=== PATIENT | male | born 1975 | race Caucasian/White ===

== ENCOUNTER → 2019-06-28 | Outpatient (CLI) | payer MEDICAID ==
[2019-06-28 11:38] LABS: HCT 44.8 % (39.0-53.0); HGB 15.6 gm/dL (13.0-17.5); MCH 31.1 pg (25.0-35.0); MCHC 34.8 g/dL (31.0-37.0); MCV 89.4 fL (80.0-100.0); Mean Platelet Volume 6.2; Platelet Count 229 k/uL (150-450); RBC 5.02 m/uL (4.30-5.90); RDW 12.2 % (11.5-15.5); WBC 12.9 k/uL (3.8-10.6)
[2019-06-28 12:09] LABS: Appearance,Urine Clear (Clear); Bilirubin,Urine Negative (Negative); Blood,Urine Negative (Negative); Color,Urine Yellow; Glucose,Urine (UA) Negative (Negative); Ketones,Urine Negative (Negative); Leukocyte Esterase,Urine Negative (Negative); Nitrite,Urine Negative (Negative); PH, Urine 5.5 (5.0-8.0); Protein,Urine Negative (Negative); Specific Gravity,Urine 1.023 (1.001-1.035); Urobilinogen,Urine <2.0 mg/dL (<2.0)
[2019-06-28 16:00] LABS: African American GFR (CKD) 120.8 (60.0-200.0); Albumin/Globulin Ratio 2.78 (1.60-3.17); Anion Gap 8.6 mmol/L (4.00-12.00); BUN/Creat Ratio 14.44 Ratio (12.00-20.00); Calcium 9.7 mg/dL (8.7-10.3); Carbon Dioxide 24.4 mmol/L (21.6-31.8); Chol/HDL Ratio 4.08; Globulin 1.8 g/dL (1.6-3.3); LDL Cholesterol,Calculated 95.8 mg/dL (0.0-131.0); Potassium 4.3 mmol/L (3.5-5.5); Total Bilirubin 0.7 mg/dL (0.3-1.2); Total Protein 6.8 g/dL (6.2-8.2); VLDL Calculation 15.2 mg/dL (5.00-40.00)
== END | disposition home or self-care (01) ==
LOC: LABWHC1 11:07
PROVIDERS: ATTEND Family Medicine
DX: Z00.01 Encounter for general adult medical examination with abnormal findings (principal)
CPT/HCPCS: 36415; 80053; 80061; 81003; 85027

== ENCOUNTER → 2019-10-04 | Outpatient (CLI) | payer MEDICAID ==
[2019-10-04 18:59] LABS: ALT 26 U/L (10-49); AST 22 U/L (14-35)
== END ==
LOC: LABWHC1 10:30
PROVIDERS: ATTEND Podiatrist Foot & Ankle Surgery
DX: K74.60 Unspecified cirrhosis of liver (principal)
CPT/HCPCS: 36415; 84450; 84460

== ENCOUNTER 2021-05-16 07:52 | Day surgery (SDC) | payer MEDICAID ==
[2021-05-14 13:02] VITALS: BMI 31.0
[~2021-05-16 07:52] MED LIST: LACTATED RINGERS 1,000 ML IV SCH
[2021-05-16 08:41] VITALS: RESP 16; TEMP 98
[2021-05-16] MEDS ORDERED: PROPOFOL 10 MG/ML 20 ML VIAL IV ONE (09:48)
[2021-05-16] MEDS ORDERED: GLYCOPYRROLATE 0.2 MG/ML 2 ML VIAL ONE (09:48)
--- NOTE | 2021-05-16 10:15 | P.HPIHPCON ---
History of Present Illness H&P Date: 05/16/21 46-year-old male presents for skin colonoscopy. He states his last colonoscopy was 20 years ago. He did have polyps at that time. Denies any blood in his stool. States he has a known: With a history of colon cancer. Consent for Procedure: I have explained the operation/procedure to the patient, including the risks, benefits, side effects, alternative therapies (including not receiving the proposed treatment or service), the likelihood of the patient achieving his/her goals, and potential recuperation problems for the procedure/sedation/analgesia, as well as any blood products, if indicated. I also explained to the patient the risks, benefits and side effects of the alternatives, as well as the risks related to not receiving the proposed procedure, care, treatment, or services. - Review of Systems All systems: negative Past Medical History Past Medical History: No Reported History History of Any Multi-Drug Resistant Organisms: None Reported Additional Past Surgical History / Comment(s): COLONOSCOPY. CYST REMOVED BY [facility] Past Anesthesia/Blood Transfusion Reactions: No Reported Reaction Smoking Status: Current every day smoker - Past Family History Mother Family Medical History: Pulmonary Embolus Additional Family Medical History / Comment(s): UNCLE ALSO HAD COLON CANCER Medications and Allergies Home Medications Medication Instructions Recorded Confirmed Type Citalopram Hydrobromide [CeleXA] 20 mg PO DAILY 05/14/21 05/14/21 History buPROPion SR [Wellbutrin SR] 150 mg PO DAILY 05/14/21 05/14/21 History Allergies Allergy/AdvReac Type Severity Reaction Status Date / Time No Known Allergies Allergy Verified 05/14/21 12:57 Surgical - Exam Osteopathic Statement: *. No significant issues noted on an osteopathic structural exam other than those noted in the History and Physical/Consult. Vital Signs Temp Pulse Resp BP Pulse Ox 98.0 F 83 16 120/72 99 05/16/21 08:40 05/16/21 08:40 05/16/21 08:40 05/16/21 08:40 05/16/21 08:40 - General well nourished, no distress - Eyes normal ocular movement - Neck trachea midline - Respiratory normal respiratory effort - Abdomen Abdomen: soft, non tender Assessment and Plan Plan: 46-year-old female presents for screening colonoscopy. Risks, benefits and alternatives were explained to the patient. He has opted for endoscopy. Consent was provided. Further regulations after procedure.
--- NOTE | 2021-05-16 10:19 | P.PCN ---
Date of Procedure: 05/16/21 Preoperative Diagnosis: Screening Postoperative Diagnosis: Transverse colon polyp Procedure(s) Performed: Colonoscopy with hot snare polypectomy Anesthesia: MAC Surgeon: Daniel Duenas Pathology: other (Transverse colon polyp) Condition: stable Disposition: same day Indications for Procedure: 46-year-old male presents today for screening colonoscopy. He does have history of polyps in the past. Denies any significant changes in bowel function. He has an uncle with colon cancer. No additional complaints. Plan for colonoscopy. Operative Findings: Transverse colon polyp Description of Procedure: The patient was brought to the endoscopy suite and placed in left lateral decubitus position and adequate sedation was achieved using conscious sedation. A digital rectal exam was performed and mild internal hemorrhoids were palpated. An endoscope was then placed in the rectum and advanced to the cecum as identified by landmarks including the appendiceal orifice and the ileocecal valve. The prep was good. The colonoscope was then slowly withdrawn, examining for any mucosal abnormalities. The cecum, ascending, transverse, descending and sigmoid colon were visualized adequately. A pedunculated polyp was noted in the transverse colon. This was removed with hot snare polypectomy. No obvious neoplastic lesions were noted. No evidence of diverticulosis. Retroflexion was performed in the rectum and internal hemorrhoids were visible. Excess air was removed, the colonoscope withdrawn and the procedure terminated. The patient was then transferred to the recovery unit in stable condition. Repeat colonoscopy should be performed in 5 years for screening.
[2021-05-16 10:35] VITALS: BP 114/77; PULSE 73
== END 2021-05-16 11:11 | disposition home or self-care (01) ==
LOC: ORWHC2ENDO 07:52
PROVIDERS: ATTEND Surgery
DX: Z12.11 Encounter for screening for malignant neoplasm of colon (principal); D12.3 Benign neoplasm of transverse colon; F17.210 Nicotine dependence, cigarettes, uncomplicated; Z80.0 Family history of malignant neoplasm of digestive organs; Z79.899 Other long term (current) drug therapy
CPT/HCPCS: 88305; 45385; J2704